=== PATIENT | female | born 1990 | race Two or more races ===

== ENCOUNTER 2016-10-05 19:18 | Emergency (ER) | payer SELFPAY ==
[~2016-10-05] VITALS: Ht 149.9 cm; Wt 61.2 kg
--- NOTE | 2016-10-05 19:44 | PHYS DOC ---
Adult General Chief Complaint Chief Complaint: ABDOMINAL PAIN HPI HPI Patient is a 26 year old female complaining of nausea, vomiting, and abdominal pain, now for the third day. 3 days ago, she woke up vomiting, and has had abdominal pain off and on. It has gotten worse each day. She hasn't been able to keep down any liquids today. She just vomits stomach acid. No blood in her vomit. She has not had this chronically or frequently but may have had it once before in her life. Denies diarrhea, has had no bowel movement today. She denies being . She's never had abdominal surgery. PCP none Review of Systems Review of Systems Constitutional: Denies fever or chills [] Eyes: Denies change in visual acuity, redness, or eye pain [] HENT: Denies nasal congestion or sore throat [] Respiratory: Denies cough or shortness of breath [] Cardiovascular: Denies chest pain GI: As in history of present illness : Denies Musculoskeletal: Denies back pain or joint pain [] Integument: Denies rash or skin lesions [] Neurologic: Denies headache, focal weakness or sensory changes [] Current Medications Current Medications Current Medications Medications (Trade) Dose Ordered Sig/Scottie Start Time Stop Time Status Last Admin Dose Admin Diphenhydramine HCl (Benadryl) 25 mg 1X ONCE 10/05/16 21:30 10/05/16 21:31 DC 10/05/16 21:27 25 MG Info (Do NOT chart on this entry -- for MONITORING) 1 each PRN DAILY PRN 10/05/16 21:45 10/07/16 21:44 Iohexol (Omnipaque 300 Mg/ml) 75 ml 1X ONCE 10/05/16 21:30 10/05/16 21:31 DC 10/05/16 21:55 75 ML Metoclopramide HCl (Reglan) 10 mg 1X ONCE 10/05/16 21:30 10/05/16 21:31 DC 10/05/16 21:27 10 MG Ondansetron HCl (Zofran) 4 mg 1X ONCE 10/05/16 19:45 10/05/16 19:46 DC 10/05/16 19:49 4 MG Promethazine HCl 12.5 mg/Sodium Chloride 50.5 ml @ 151.5 mls/ hr PRN Q6HRS PRN 10/05/16 20:30 10/05/16 20:58 151.5 MLS/HR Sodium Chloride 1,000 ml @ 1,000 mls/hr 1X ONCE 10/05/16 20:30 10/05/16 21:29 DC 10/05/16 21:04 1,000 MLS/HR Allergies Allergies Allergies Coded Allergies Type Severity Reaction Last Updated Verified No Known Drug Allergies 10/05/16 No Physical Exam Physical Exam Constitutional: Well developed, well nourished, no acute distress, non-toxic appearance. Alert, mentating normally, nontachycardic HENT: Normocephalic, atraumatic, bilateral external ears normal, nose normal. [ ] Eyes: conjunctiva normal, no discharge. [] Neck: Normal range of motion, no stridor. [] Cardiovascular:Heart rate regular rhythm, no murmur [] Lungs & Thorax: Bilateral breath sounds clear to auscultation [] Abdomen: Bowel sounds normal, soft, nondistended, no masses, no pulsatile masses. Mildly tender to palpation across the upper abdomen, no rebound or guarding, nonlocalized. Skin: Warm, dry, no erythema, no rash. [] Extremities: No tenderness, no cyanosis, no clubbing, ROM intact, no edema. [] Neurologic: Alert and oriented X 3, normal motor function, normal sensory function, no focal deficits noted. [] Current Patient Data Vital Signs Vital Signs Date Time Temp Pulse Resp B/P (MAP) Pulse Ox O2 Delivery O2 Flow Rate FiO2 10/05/16 20:25 66 20 124/82 (96) 99 Room Air 10/05/16 19:37 98.1 98.1 Lab Values Laboratory Tests Test 10/05/16 18:37 10/05/16 19:28 POC Urine HCG, Qualitative Hcg negative (Negative) White Blood Count 10.8 x10^3/uL (4.0-11.0) Red Blood Count 4.39 x10^6/uL (3.50-5.40) Hemoglobin 13.1 g/dL (12.0-15.5) Hematocrit 39.0 % (36.0-47.0) Mean Corpuscular Volume 89 fL (79-100) Mean Corpuscular Hemoglobin 30 pg (25-35) Mean Corpuscular Hemoglobin Concent 34 g/dL (31-37) Red Cell Distribution Width 13.8 % (11.5-14.5) Platelet Count 332 x10^3/uL (140-400) Neutrophils (%) (Auto) 76 % (31-73) H Lymphocytes (%) (Auto) 17 % (24-48) L Monocytes (%) (Auto) 6 % (0-9) Eosinophils (%) (Auto) 0 % (0-3) Basophils (%) (Auto) 1 % (0-3) Neutrophils # (Auto) 8.1 x10^3uL (1.8-7.7) H Lymphocytes # (Auto) 1.8 x10^3/uL (1.0-4.8) Monocytes # (Auto) 0.7 x10^3/uL (0.0-1.1) Eosinophils # (Auto) 0.0 x10^3/uL (0.0-0.7) Basophils # (Auto) 0.1 x10^3/uL (0.0-0.2) Urine Collection Type Unknown Urine Color [place] Urine Clarity Turbid Urine pH 6.0 Urine Specific Chrisman >=1.030 Urine Protein Negative mg/dL (NEG-TRACE) Urine Glucose (UA) Negative mg/dL (NEG) Urine Ketones (Stick) 15 mg/dL (NEG) Urine Blood Negative (NEG) Urine Nitrite Negative (NEG) Urine Bilirubin Small (NEG) Urine Urobilinogen Dipstick 1.0 mg/dL (0.2 mg/dL) Urine Leukocyte Esterase Negative (NEG) Urine RBC Occ /HPF (0-2) Urine WBC 0 /HPF (0-4) Urine Squamous Epithelial Cells Few /LPF Urine Bacteria Few /HPF (0-FEW) Urine Mucus Marked /LPF Sodium Level 141 mmol/L (136-145) Potassium Level 3.2 mmol/L (3.5-5.1) L Chloride Level 104 mmol/L (98-107) Carbon Dioxide Level 25 mmol/L (21-32) Anion Gap 12 (6-14) Blood Urea Nitrogen 10 mg/dL (7-20) Creatinine 0.8 mg/dL (0.6-1.0) Estimated GFR (Cockcroft-Gault) 87.4 BUN/Creatinine Ratio 13 (6-20) Glucose Level 106 mg/dL (70-99) H Calcium Level 9.5 mg/dL (8.5-10.1) Total Bilirubin 0.4 mg/dL (0.2-1.0) Aspartate Amino Transferase (AST) 13 U/L (15-37) L Alanine Aminotransferase (ALT) 21 U/L (14-59) Alkaline Phosphatase 84 U/L (46-116) Total Protein 8.0 g/dL (6.4-8.2) Albumin 4.5 g/dL (3.4-5.0) Albumin/Globulin Ratio 1.3 (1.0-1.7) Lipase 75 U/L (73-393) Laboratory Tests 10/05/16 19:28 Laboratory Tests 10/05/16 19:28 EKG EKG [] Radiology/Procedures Radiology/Procedures CT scan of the abdomen and pelvis read by the radiologist. No acute findings. [] Course & Med Decision Making Course & Med Decision Making Pertinent Labs and Imaging studies reviewed. (See chart for details) Healthy 26-year-old female presents with 3 days of nausea and vomiting and upper abdominal pain. I discussed that we will get labs and give her IV fluids and IV antiemetics, she is agreeable to that plan. Labs unremarkable, lipase negative, urine test negative. Patient had 1 L of normal saline and IV Zofran, ED RN reports to me that she is still retching and vomiting. I ordered IV Phenergan. 2114 recheck patient. She has had most of the second liter of normal saline and her Phenergan is in, she is sitting up on the cart retching and having dry heaves. We will try Reglan and Benadryl and check a CT scan. CT scan negative for acute findings. The patient did stop vomiting after the Reglan and Benadryl. She had a total of 2 L of IV normal saline. I revisited the patient. I offered her admission to the hospital for further nausea control and IV fluids. Patient declined admission, she wants to go home. I believe this is reasonable as well. She can return if oral Reglan and Benadryl don't work at home. We discussed that. See instructions for plan. [] Dragon Disclaimer Dragon Disclaimer This electronic medical record was generated, in whole or in part, using a voice recognition dictation system. Departure Departure Impression: Primary Impression: Nausea & vomiting Additional Impression: Dehydration Disposition: 01 HOME, SELF-CARE Condition: IMPROVED Referrals: NO PCP (PCP) Patient Instructions: Nausea and Vomiting, [id number] Additional Instructions: Rest at home until better. Frequent sips of fluids, Jell-O, popsicles. Take Benadryl 25 mg one every 6 hours along with Reglan as prescribed 1 every 6 hours, as needed for nausea and vomiting. No driving while taking either of these medications. Scripts Metoclopramide Hcl (REGLAN) 10 Mg Tablet 1 TAB PO QID for VOMITING, #10 TAB Take with Benadryl Prov: OSMAN GE MD 10/05/16 Problem Qualifiers OSMAN GE MD Oct 05, 2016 19:44
[2016-10-05] MEDS ORDERED: ONDANSETRON PF 4 MG/2 ML VIAL. IV ONE (19:45)
[2016-10-05 19:47] LABS: BASO # 0.1 x10^3/uL (0.0-0.2); BASO % 1 % (0-3); EOS % 0 % (0-3); HEMOGLOBIN 13.1 g/dL (12.0-15.5); LYMPH # 1.8 x10^3/uL (1.0-4.8); LYMPH % 17 % (24-48); MEAN CORPUSCULAR HEMOGLOBIN 30 pg (25-35); MEAN CORPUSCULAR HGB CONC 34 g/dL (31-37); MEAN CORPUSCULAR VOLUME 89 fL (79-100); MONO % 6 % (0-9); NEUT % 76 % (31-73); PLATELET COUNT 332 x10^3/uL (140-400); RED BLOOD COUNT 4.39 x10^6/uL (3.50-5.40); RED CELL DISTRIBUTION WIDTH 13.8 % (11.5-14.5); WHITE BLOOD COUNT 10.8 x10^3/uL (4.0-11.0)
[2016-10-05 19:48] LABS: BILIRUBIN,URINE SMALL (NEG); GLUCOSE,URINE NEGATIVE (NEG); NITRITE,URINE NEGATIVE (NEG); PROTEIN,URINE NEGATIVE (NEG-TRACE)
[2016-10-05] MEDS: IV NORMAL SALINE 1000ML BAG 1,000 ML IV SCH ×2 (19:49→20:36)
[2016-10-05 20:03] LABS: CALCIUM 9.5 mg/dL (8.5-10.1); CREATININE 0.8 mg/dL (0.6-1.0); GFR 87.4; POTASSIUM 3.2 mmol/L (3.5-5.1)
[2016-10-05 20:07] LABS: BACTERIA,URINE FEW /HPF (0-FEW); RBC,URINE OCC /HPF (0-2); SQUAMOUS EPITHELIAL CELL,UR FEW /LPF; WBC,URINE 0 /HPF (0-4)
[2016-10-05 20:09] LABS: ALBUMIN 4.5 g/dL (3.4-5.0); ALBUMIN/GLOBULIN RATIO 1.3 (1.0-1.7); TOTAL BILIRUBIN 0.4 mg/dL (0.2-1.0)
[2016-10-05 20:25] VITALS: BP 124/82
[2016-10-05] MEDS ORDERED: IV NORMAL SALINE 1000ML BAG 1,000 ML IV ONE (20:30)
[2016-10-05] MEDS: PROMETHAZINE 12.5 MG in IV NORMAL SALINE 50ML 50 ML IV PRN ×2 (20:51→20:58)
[2016-10-05] MEDS ORDERED: diphenhydrAMINE 50 MG/ML VIAL IVP ONE (21:30)
[2016-10-05] MEDS ORDERED: IOHEXOL 300 MG/ML 75 ML VIAL IV ONE (21:30)
[2016-10-05] MEDS ORDERED: METOCLOPRAMIDE HCL 10 MG/2 ML VIAL. IV ONE (21:30)
[2016-10-05] MEDS ORDERED: CONTRAST GIVEN MC PRN (21:45)
--- NOTE | 2016-10-05 22:16 | RAD ---
CT abdomen and pelvis with contrast History: Abdominal pain and vomiting for 3 days Technique: After the administration of intravenous contrast, CT imaging was performed of the abdomen and pelvis. No oral contrast was given as per request. Multiplanar images are reviewed. Exposure: One or more of the following individualized dose reduction techniques were utilized for this examination: 1. Automated exposure control 2. Adjustment of the mA and/or kV according to patient size 3. Use of iterative reconstruction technique. Contrast: 75 cc Omnipaque 300 Comparison: None Findings: There is no significant abnormality of the visualized lung bases. There is no significant abnormality of the liver, spleen, pancreas, adrenal glands. Both kidneys enhance without hydronephrosis. Gallbladder is present without obvious intraluminal abnormality by CT. Accurate evaluation of bowel is limited without oral contrast. There is no significant inflammatory change adjacent to the bowel. There is no evidence of bowel obstruction, free fluid, or free air. Normal appendix is visualized. There is mild colonic diverticulosis such as near the splenic flexure. The bladder has a normal configuration. There is no significant lymphadenopathy. There may be small right adnexal cyst/cysts. Impression: 1. No significant acute abnormality is identified. There is mild diverticulosis near the splenic flexure. Electronically signed by: Lambert Torres MD (10/05/2016 10:12 PM) [facility]
[2016-10-05] MEDS ORDERED: METO10TA81 PO (22:33)
== END 2016-10-05 22:39 | disposition home or self-care (01) ==
LOC: ER 19:18
DX: R11.2 Nausea with vomiting, unspecified (principal); E86.0 Dehydration
CPT/HCPCS: 36415; 74177; 80053; 81001; 81025; 83690; 85027; 96365; 96375; 99285; J1200; J2405; J2550; J2765; J7030; Q9967